=== PATIENT | female | born 1995 | race African-American/Black ===

== ENCOUNTER 2020-10-08 01:16 | Outpatient (CLI) | payer MEDICAID ==
[~2020-10-08] VITALS: Ht 162.6 cm; Wt 100.9 kg
--- NOTE | 2020-10-08 01:31 | NUR ---
To unit for labor assessment accompnaied by juani corral. Oreinted to room, monitor, plan of care. Pt reports "I'm having pain in my stomach" Pt points to lower abd bilat and upper thighs bilat.
[2020-10-08 01:40] VITALS: BP 131/63; PULSE 117
[2020-10-08] MEDS ORDERED: PRENATAL TABLET PO (02:20)
[2020-10-08 02:45] VITALS: BP 133/71; PULSE 95; TEMP 98.4
--- NOTE | 2020-10-08 03:20 | NUR ---
Discharge instructions reviewed withpt and significant other. Questions invited and answered. Ambulatory off unit.
== END 2020-10-08 03:20 | disposition home or self-care (01) ==
LOC: LDRO 01:16 → LDR 01:30 → LDRO 03:20
DX: O26.893 Other specified pregnancy related conditions, third trimester (principal); R10.30 Lower abdominal pain, unspecified; Z3A.33 33 weeks gestation of pregnancy
CPT/HCPCS: OP